=== PATIENT | female | born 1995 | race Caucasian/White ===

== ENCOUNTER 2023-10-22 09:48 | Day surgery (SDC) | payer OTHER ==
[~2023-10-22] VITALS: Ht 149.9 cm; Wt 67.5 kg
[~2023-10-22 09:48] MED LIST: NS 1,000 ML IV ONE; SERT-141 PO; propofoL 200 MG/20 ML VIAL As Ordered ONE
[2023-10-22] MEDS ORDERED: propofoL 200 MG/20 ML VIAL As Ordered ONE (10:37)
[2023-10-22 11:20] VITALS: TEMP 98.1
[2023-10-22 11:35] VITALS: BP 131/78; O2SAT 99
== END 2023-10-22 11:41 | disposition home or self-care (01) ==
LOC: M OPP 09:48
PROVIDERS: ATTEND Internal Medicine Gastroenterology
DX: K64.8 Other hemorrhoids (principal); K58.0 Irritable bowel syndrome with diarrhea; R19.4 Change in bowel habit; K30 Functional dyspepsia; K44.9 Diaphragmatic hernia without obstruction or gangrene; K29.70 Gastritis, unspecified, without bleeding; R19.7 Diarrhea, unspecified; Z79.51 Long term (current) use of inhaled steroids; Z79.899 Other long term (current) drug therapy

== ENCOUNTER → 2024-03-11 | Outpatient (CLI) | payer OTHER ==
[~2024-03-11] MED LIST changes: +GASTROGRAFIN SOLUTION 30ML ONE; +ISOVUE-370 76% 100ML VIAL ONE; -NS 1,000 ML IV ONE; -propofoL 200 MG/20 ML VIAL As Ordered ONE
== END ==
LOC: M PLAIMG 08:27
PROVIDERS: ATTEND Student in an Organized Health Care Education/Training Program
DX: K86.89 Other specified diseases of pancreas (principal)
CPT/HCPCS: 74170; Q9963; Q9967